=== PATIENT | female | born 1970 | race Two or more races ===

== ENCOUNTER 2019-06-14 21:31 | Emergency (ER) | payer OTHER ==
[~2019-06-14] VITALS: Ht 167.6 cm; Wt 70.4 kg
[~2019-06-14 21:31] MED LIST: ESCI20TA10 PO; HYDR25TA6 PO; LOSA25TA25 PO; OXYC5TAB3 PO
--- NOTE | 2019-06-14 21:45 | NUR ---
Pt belongings secured and put in locked storage area. Pt present when packaging belongings in one bag.
--- NOTE | 2019-06-14 21:46 | NUR ---
GUNNER RN: MARLA MORENO
[2019-06-14 22:43] LABS: BASOPHILS # (AUTO) 0.03 x10^3/uL (0-0.1); BASOPHILS % (AUTO) 0 % (0-1); EOSINOPHILS # (AUTO) 0.04 x10^3/uL (0-0.4); EOSINOPHILS % (AUTO) 0 % (1-7); LYMPHOCYTES # (AUTO) 2.35 x10^3/uL (1-3.4); LYMPHOCYTES % (AUTO) 25 % (22-44); MD NO; MEAN CORPUSCULAR HEMOGLOBIN 28.2 pg (27.0-34.8); MEAN CORPUSCULAR HGB CONC 32.9 g/dL (32.4-35.8); MEAN CORPUSCULAR VOLUME 85.8 fL (80-100); MEAN PLATELET VOLUME 8.3 fL (7.4-10.4); MONOCYTES # (AUTO) 0.56 x10^3/uL (0.2-0.8); MONOCYTES % (AUTO) 6 % (2-9); NEUTROPHILS # (AUTO) 6.36 x10^3/uL (1.8-6.8); NEUTROPHILS % (AUTO) 68 % (42-75); PLATELET COUNT 289 x10^3/uL (130-400); RED BLOOD COUNT 4.59 x10^6/uL (3.82-5.3); RED CELL DISTRIBUTION WIDTH 16.7 % (9.6-15.2)
--- NOTE | 2019-06-14 22:45 | NUR ---
pt standing at doorway, this nurse asked patient to step back inside room. Pt argumentative but back in room at this time.
[2019-06-14 22:52] LABS: ALBUMIN 3.5 g/dL (3.4-5.0); ANION GAP 7 mmol/L (5-15); CALCIUM 8.3 mg/dL (8.5-10.1); CHLORIDE 110 mmol/L (98-107)
[2019-06-14 22:53] LABS: SALICYLATE LEVEL < 1.7 mg/dL (2.8-20.0)
[2019-06-14 22:55] LABS: ALANINE AMINOTRANSFERASE 15 U/L (12-78); ALKALINE PHOSPHATASE 114 U/L (45-117); BILIRUBIN,TOTAL 0.7 mg/dL (0.2-1.0); CREATININE 0.96 mg/dL (0.55-1.02)
[2019-06-14 23:08] LABS: AMPHETAMINE SCREEN, URINE Negative (Negative); BARBITURATE SCREEN, URINE Negative (Negative); BENZODIAZEPINE SCREEN, URINE Negative (Negative); CANNABINOID SCREEN, URINE Negative (Negative); COCAINE SCREEN, URINE Negative (Negative); METHADONE SCREEN, URINE Negative (Negative); OPIATE SCREEN, URINE Negative (Negative)
--- NOTE | 2019-06-14 23:40 | NUR ---
Pt ambulatory to bathroom, nurse escorted
--- NOTE | 2019-06-15 00:47 | NUR ---
Pt updated on plan of care, will repeat breathalyzer shortly. Will continue to monitor.
--- NOTE | 2019-06-15 01:46 | NUR ---
Tele-psych doc consulting at this time
--- NOTE | 2019-06-15 03:08 | NUR ---
SPOKE TO SUZY ROPER IN 3E. THEY DO NOT HAVE A PRODUCT TEST SPECIALIST IN HOUSE TO APPROVE THE ADMIT.
--- NOTE | 2019-06-15 04:31 | NUR ---
BREATH ETOH 0.144
--- NOTE | 2019-06-15 05:37 | NUR ---
Pt resting at this time.
--- NOTE | 2019-06-15 06:15 | NUR ---
Sitter at bedside
--- NOTE | 2019-06-15 06:37 | NUR ---
Breath etoh 0.073
--- NOTE | 2019-06-15 07:06 | NUR ---
REPORT RECIEVED FROM TIM ROPER. PT RESTING IN BED. SAFETY PRECAUTIONS IN PLACE.
[2019-06-15 07:10] VITALS: BP 129/87
--- NOTE | 2019-06-15 07:42 | NUR ---
THROUGHPUT RN: [facility] ALERTED TO PT BEING IN ER. JUDSON OKEEFE STATES HE WILL CALL BACK REGARDING ADMISSION.
--- NOTE | 2019-06-15 09:22 | NUR ---
THROUGHPUT RN: SOC CALLED, WILL RE-EVALUATE PT NOW.
--- NOTE | 2019-06-15 10:51 | NUR ---
REPORT FROM ELENA ROPER, ASSUME CARE OF PT AT THIS TIME. PT SLEEPING, NAD, EVEN/RISE AND FALL OF CHEST. PHOTO PRINT SPECIALIST TO SEE FOR PSYCH EVALUATION.
--- NOTE | 2019-06-15 10:54 | NUR ---
THROUGHPUT RN: PER PSYCH FLOOR SCRAPER OKAY TO CANCEL THE TELEPSYCH CONSULT. PSYCH FLOOR SCRAPER AT BEDSIDE ASSESSING PT NOW.
--- NOTE | 2019-06-15 11:01 | NUR ---
[employer] MARKETING MANAGER IN TO SEE PT.
== END 2019-06-15 11:45 | disposition home or self-care (01) ==
LOC: ED 22:21
DX: F32.1 Major depressive disorder, single episode, moderate (principal); F10.120 Alcohol abuse with intoxication, uncomplicated; I10 Essential (primary) hypertension; Y90.9 Presence of alcohol in blood, level not specified
CPT/HCPCS: 36415; 80053; 80307; 85025; 99284